=== PATIENT | male | born 1950 | race Caucasian/White ===

== ENCOUNTER → 2016-12-18 | Outpatient (CLI) | payer MEDICARE ==
--- NOTE | 2016-12-18 15:35 | XR ---
EXAMINATION TYPE: XR ribs LT w pa chest xray DATE OF EXAM: 12/18/2016 COMPARISON: NONE HISTORY: Left rib injury TECHNIQUE: 2 views left RIBS FINDINGS: No acute fractures are evident. No pneumothorax is evident. IMPRESSION: 1. Normal left ribs
== END | disposition home or self-care (01) ==
LOC: RADXRYALE 14:01
PROVIDERS: ATTEND Physician Assistant Medical
DX: R07.81 Pleurodynia (principal); W19.XXXA Unspecified fall, initial encounter

== ENCOUNTER 2017-03-03 11:49 | Day surgery (SDC) | payer MEDICARE ==
[2017-02-27 09:26] VITALS: BMI 32.9
[~2017-03-03 11:49] MED LIST: LACTATED RINGERS 1,000 ML IV SCH
[2017-03-03 12:36] VITALS: RESP 18; TEMP 98.3
[2017-03-03] MEDS ORDERED: LIDOCAINE 1% 20 ML VIAL (10MG/ML) FOR IV START INTRADERMA ONE (12:37)
[2017-03-03] MEDS ORDERED: PROPOFOL 10 MG/ML 20 ML VIAL IV ONE (13:15)
[2017-03-03 13:47] VITALS: BP 138/86
--- NOTE | 2017-03-03 13:55 | P.PCN ---
Date of Procedure: 03/03/17 Procedure(s) Performed: Procedure: Total colonoscopy. Preoperative diagnosis: Hemoccult-positive stools. Postoperative diagnosis: Exam within normal limits. Preparation: HalfLytely prep. Sedation: Was provided by anesthesia. Brief clinical history: The patient is a 66-year-old male who is referred for this evaluation because of finding of positive occult blood in his stools. The patient has no overt bleeding or any abdominal symptoms. He had a similar finding in May 2015 and was found to have a flat adenoma in the right colon which was snared and removed piecemeal. This evaluation is requested to rule out neoplasia or other pathology. Procedure: With the patient on his left lateral decubitus position and after informed consent and adequate sedation the perianal area was inspected and it did not show any fissures or fistulas. There were no masses felt on digital rectal examination. The Olympus CFQ 160l video colonoscope was then inserted in the rectum in the usual fashion and advanced to the cecum. I intubated the ileocecal valve and examined the terminal ileum for a good distance. Terminal ileum and colon appeared healthy with no edema, erythema, friability, ulceration , exudation or spontaneous bleeding. No polyps or tumors were seen or any obvious pathology. I retroflexed the endoscope in the rectum before the endoscope was withdrawn, low-grade internal hemorrhoids were noted but there was no bleeding. The patient tolerated the procedure well. Plan: The patient was reassured. In the absence of upper GI complaints or anemia I did not recommend upper GI workup for the workup of his Hemoccult positive stools at this time and that can be kept as a contingency based on his course. He will follow up with you as planned and I recommended repeat colonoscopy in around 5 years.
[2017-03-03 14:13] VITALS: PULSE 70
== END 2017-03-03 14:29 | disposition home or self-care (01) ==
LOC: ORWHC2ENDO 11:49
DX: K64.8 Other hemorrhoids (principal); Z86.010 Personal history of colon polyps; I10 Essential (primary) hypertension; E78.5 Hyperlipidemia, unspecified; M19.90 Unspecified osteoarthritis, unspecified site; Z79.1 Long term (current) use of non-steroidal anti-inflammatories (NSAID); Z79.891 Long term (current) use of opiate analgesic; Z79.899 Other long term (current) drug therapy
CPT/HCPCS: 45378; J2704

== ENCOUNTER → 2017-08-19 | Outpatient (CLI) | payer MEDICARE ==
--- NOTE | 2017-08-19 09:57 | CT ---
EXAMINATION TYPE: CT sinus wo con DATE OF EXAM: 08/19/2017 COMPARISON: NONE HISTORY: Chronic pansinusitis CT DLP: 654.40 mGycm. Automated Exposure Control for Dose Reduction was Utilized. TECHNIQUE: CT scan of the sinuses is performed without contrast, axial images are obtained, coronal r eformatted images are also reviewed. FINDINGS: There is moderate to severe mucosal thickening involving the right maxillary sinus with occ lusion of the ostiomeatal complex. There is a mucous retention cyst involving the inferior margin of the left maxillary sinus. The ostiu m and ostiomeatal complex are patent. Frontal sinus has a normal appearance. There is mild ethmoidal mucosal thickening. Sphenoid sinus has a normal appearance. There is a nasal septal deviation. Nasopharynx and oropharynx symmetric. Visualized parotid glands normal. Intraorbital and intracranial structures visualized demonstrate no acute abnormality. IMPRESSION: 1. Findings are compatible with moderate to severe chronic right maxillary sinusitis with occlusion o f the ostiomeatal complex. Minimal changes are seen involving the left maxillary sinus.
== END | disposition home or self-care (01) ==
LOC: RADCTMAIN 08:07
PROVIDERS: ATTEND Family Medicine
DX: J34.89 Other specified disorders of nose and nasal sinuses (principal); J32.4 Chronic pansinusitis
CPT/HCPCS: 70486

== ENCOUNTER 2020-03-03 20:25 | Emergency (ER) | payer OTHER, MEDICARE ==
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
--- NOTE | 2020-03-03 21:30 | XR ---
EXAMINATION TYPE: XR Femur RT 1 View DATE OF EXAM: 03/03/2020 COMPARISON: NONE HISTORY: Pain TECHNIQUE: 2 views FINDINGS: There is a posterior superior fracture dislocation of the right hip joint. There is large f racture fragment of the acetabulum located superiorly and posteriorly. The knee joint appears anatomi c. IMPRESSION: Posterior superior fracture dislocation of the right hip joint.
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
[2020-03-03] MEDS ORDERED: ePHEDrine SULFATE/0.9% NACL/PF 50 MG/5 ML SYRINGE IV ONE (21:43)
[2020-03-03] MEDS ORDERED: fentaNYL (PF) 50 MCG/ML 2 ML AMP ONE (21:43)
[2020-03-03] MEDS ORDERED: IV FLUID CONTINUATION 1,000 ML IV ONE (21:43)
[2020-03-03] MEDS ORDERED: KETOROLAC 15 MG/ML 1 ML VIAL ONE (21:43)
[2020-03-03] MEDS ORDERED: LACTATED RINGERS 1,000 ML IV ONE ×2 (21:43→22:00)
[2020-03-03] MEDS ORDERED: ROCURONIUM 10 MG/ML (5 ML VIAL) IV ONE (21:43)
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
[2020-03-03 22:10] LABS: Appearance,Urine Cloudy (Clear); Bilirubin,Urine Negative (Negative); Blood,Urine Large (Negative); Budding Yeast,Urine Few /hpf; Color,Urine Light Red; Glucose,Urine (UA) Negative (Negative); Hyaline Casts,Urine 10 /lpf (0-2); Ketones,Urine Negative (Negative); Leukocyte Esterase,Urine Negative (Negative); Mucus,Urine Few /hpf; Nitrite,Urine Negative (Negative); PH, Urine 5.5 (5.0-8.0); Protein,Urine 1+ (Negative); RBC,Urine >182 /hpf (0-5); Specific Gravity,Urine 1.033 (1.001-1.035); Squamous Epithelial Cell,Urine 1 /hpf (0-4); Urobilinogen,Urine <2.0 mg/dL (<2.0); WBC,Urine 26 /hpf (0-5)
[2020-03-03 22:34] LABS: Amphetamine Screen,Urine Not Detected (NotDetected); Barbiturate Screen,Urine Not Detected (NotDetected); Benzodiazepines Screen,Urine Detected (NotDetected); Cocaine Screen,Urine Not Detected (NotDetected); Methadone Screen, Urine Not Detected (NotDetected); Opiate Screen,Urine Detected (NotDetected); Oxycodone Screen, Urine Not Detected (NotDetected); Phencyclidine Screen,Urine Not Detected (NotDetected); Tricyclic Antidepressant,Urine Not Detected (NotDetected); Urn Cannabinoid Scrn Not Detected (NotDetected)
[2020-03-03 22:42] LABS: Basophils % (A) 0 %; Eosinophils # (A) 0.1 k/uL (0-0.7); Eosinophils % (A) 1 %; HCT 40.4 % (39.0-53.0); HGB 12.8 gm/dL (13.0-17.5); Hypochromasia Slight; Lymphocytes # (A) 2.2 k/uL (1.0-4.8); Lymphocytes % (A) 16 %; MCH 28.9 pg (25.0-35.0); MCHC 31.6 g/dL (31.0-37.0); MCV 91.3 fL (80.0-100.0); Mean Platelet Volume 7.2; Monocytes # (A) 0.8 k/uL (0-1.0); Monocytes % (A) 6 %; Neutrophils # (A) 10.4 k/uL (1.3-7.7); Neutrophils % (A) 76 %; Platelet Count 265 k/uL (150-450); RBC 4.42 m/uL (4.30-5.90); RDW 15.4 % (11.5-15.5); WBC 13.6 k/uL (3.8-10.6)
[2020-03-03 23:00] LABS: ALT 84 U/L (4-49); AST 138 U/L (17-59); African American GFR (CKD) 83 (>60 ml/min/1.73 sqM); Albumin 2.4 g/dL (3.5-5.0); Alcohol <10 mg/dL; Alkaline Phosphatase 86 U/L (38-126); Anion Gap 2 mmol/L; Blood Urea Nitrogen 28 mg/dL (9-20); Calcium 6.8 mg/dL (8.4-10.2); Carbon Dioxide 27 mmol/L (22-30); Chloride 110 mmol/L (98-107); Glucose 118 mg/dL (74-99); Non-African American GFR(CKD) 72 (>60 ml/min/1.73 sqM); Potassium 4.4 mmol/L (3.5-5.1); Sodium 139 mmol/L (137-145); Total Bilirubin 0.3 mg/dL (0.2-1.3); Total Protein 4.6 g/dL (6.3-8.2)
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
[2020-03-03 23:14] LABS: Creatine Kinase 1435 U/L (55-170)
[2020-03-03 23:37] VITALS: BP 99/64; PULSE 118; RESP 28; TEMP 97
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
[2020-03-04] MEDS ORDERED: fentaNYL (PF) 50 MCG/ML 2 ML AMP IVP PRN (01:44)
--- NOTE | 2020-03-07 09:06 | CDI ---
Dear Demarcus Genao, Please do addendum to ED report moderate sedation start and stop time. Thank you, Marcio Hutson Travel Registered Nurse Oncology If you have any questions, please contact [employer] at [phone] [facility]
== END 2020-03-03 21:36 | disposition other institution (70) ==
LOC: EC 20:25
DX: S27.2XXA Traumatic hemopneumothorax, initial encounter (principal); S22.5XXA Flail chest, initial encounter for closed fracture; S73.001A Unspecified subluxation of right hip, initial encounter; S32.401A Unspecified fracture of right acetabulum, initial encounter for closed fracture; S70.11XA Contusion of right thigh, initial encounter; M62.82 Rhabdomyolysis; S20.212A Contusion of left front wall of thorax, initial encounter; S20.211A Contusion of right front wall of thorax, initial encounter; I95.9 Hypotension, unspecified; R06.03 Acute respiratory distress; E78.5 Hyperlipidemia, unspecified; M19.90 Unspecified osteoarthritis, unspecified site; Z79.1 Long term (current) use of non-steroidal anti-inflammatories (NSAID); I10 Essential (primary) hypertension; Z79.899 Other long term (current) drug therapy; Z87.891 Personal history of nicotine dependence; V63.5XXA Driver of heavy transport vehicle injured in collision with car, pick-up truck or van in traffic accident, initial encounter; Y93.89 Activity, other specified; Y92.410 Unspecified street and highway as the place of occurrence of the external cause
CPT/HCPCS: 99291; 96374; 32551; 27250; 99152; 31500; 36415; 93005; 86900; 86901; 80053; 82550; 84484; 85025; 86850; 86920; 81001; 80306; 80320; 72170; 73551; 71045; 72125; 70450; 71260; 74177; C1729 ×2; P9016; P9059; J3010; J1885

== ENCOUNTER → 2020-08-18 | Outpatient (CLI) | payer OTHER, MEDICARE ==
[2020-08-18 12:49] LABS: African American GFR (CKD) >90 (>60 ml/min/1.73 sqM); Blood Urea Nitrogen 20 mg/dL (9-20); Non-African American GFR(CKD) >90 (>60 ml/min/1.73 sqM)
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
== END ==
LOC: RADCTMAIN 11:57
PROVIDERS: ATTEND Surgery Surgical Oncology
DX: M79.89 Other specified soft tissue disorders (principal)
CPT/HCPCS: 82565; 84520; 73702; 36415; 73202; Q9967

== ENCOUNTER → 2022-03-15 | Outpatient (CLI) | payer MEDICARE, OTHER ==
--- NOTE | 2022-03-15 18:04 | CA ---
Transthoracic Echo Report Name: Lior Hahn Age: 71 Gender: M : 1950 Exam Date: 03/15/2022 13:02 Exam Location: [place] [facility] Ht (in): 65 Wt (lb): 180 Ordering Physician: Gabriele Champion DO Attending/Referring Phys: Hunter Trapper Kathrin Rogers RDCS Procedure CPT: Indications: R06.02 SOB Cardiac Hx: Technical Quality: Fair Contrast 1: Total Dose (mL): Contrast 2: Total Dose (mL): MEASUREMENTS (Male / Female) Normal Values 2D ECHO LV Diastolic Diameter PLAX 5.0 cm 4.2 - 5.9 / 3.9 - 5.3 cm LV Systolic Diameter PLAX 4.0 cm IVS Diastolic Thickness 1.0 cm 0.6 - 1.0 / 0.6 - 0.9 cm LVPW Diastolic Thickness 1.5 cm 0.6 - 1.0 / 0.6 - 0.9 cm LV Relative Wall Thickness 0.5 RV Internal Dim ED PLAX 3.8 cm M-MODE Aortic Root Diameter MM 3.2 cm LA Systolic Diameter MM 3.3 cm LA Ao Ratio MM 1.0 MV E Point Septal Separation 0.3 cm AV Cusp Separation MM 2.1 cm DOPPLER TR Peak Velocity 244.9 cm/s TR Peak Gradient 24.0 mmHg Right Ventricular Systolic Press 29.0 mmHg FINDINGS Left Ventricle Left ventricular ejection fraction is estimated at 45-50 %. Mildly increased left ventricular wall thickness. Right Ventricle Moderate right ventricular dilatation. Right Atrium Normal right atrial size. Left Atrium Normal left atrial size. Mitral Valve Structurally normal mitral valve. Mild mitral regurgitation. Aortic Valve Trileaflet aortic valve. Aortic valve sclerosis. Tricuspid Valve Structurally normal tricuspid valve. Mild tricuspid regurgitation. Pulmonic Valve Pulmonic valve not well visualized. Pericardium Normal pericardium. Aorta Normal size aortic root and proximal ascending aorta. CONCLUSIONS Mildly impaired LV function was EF between 45-50% Previewed by: Dr. Reinaldo Harris MD (Electronically Signed) Final Date: 15 March 2022 18:03
== END | disposition home or self-care (01) ==
LOC: RADECHMAIN 12:52
PROVIDERS: ATTEND Family Medicine
DX: R06.02 Shortness of breath (principal); R60.9 Edema, unspecified
CPT/HCPCS: 93306

== ENCOUNTER → 2022-06-05 | Outpatient (CLI) | payer OTHER ==
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
== END | disposition home or self-care (01) ==
LOC: RADCTMAIN 09:02
PROVIDERS: ATTEND Surgery Surgical Oncology
DX: S22.43XA Multiple fractures of ribs, bilateral, initial encounter for closed fracture (principal); M61.58 Other ossification of muscle, other site; R68.81 Early satiety
CPT/HCPCS: 71250; 74176

== ENCOUNTER → 2022-10-29 | Outpatient (CLI) | payer MEDICARE ==
--- NOTE | 2022-10-29 11:11 | XR ---
EXAMINATION TYPE: XR chest 2V DATE OF EXAM: 10/29/2022 COMPARISON: 03/03/2020 TECHNIQUE: PA and lateral views submitted. HISTORY: Cough FINDINGS: The lungs are clear and there is no pneumothorax, pleural effusion, or focal pneumonia. Heart size normal and no overt failure. Osseous structures demonstrate hypertrophic and degenerative changes of the spine. Chronic deformity and postsurgical changes involving the rib cage. Atherosclerotic change aorta. IMPRESSION: 1. No acute process.
== END | disposition home or self-care (01) ==
LOC: RADXRYALE 10:39
PROVIDERS: ATTEND Family Medicine
DX: J18.0 Bronchopneumonia, unspecified organism (principal); R06.2 Wheezing; R06.02 Shortness of breath
CPT/HCPCS: 71046

== ENCOUNTER → 2024-09-07 | Outpatient (CLI) | payer MEDICARE ==
[2024-09-07 12:33] LABS: African American GFR (CKD) >90 (>60 ml/min/1.73 sqM); Blood Urea Nitrogen 19 mg/dL (9-20); Non-African American GFR(CKD) 81 (>60 ml/min/1.73 sqM)
--- NOTE | 2024-09-07 13:18 | CT ---
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 FINDINGS: Noncontrast images show no acute intracranial hemorrhage or midline shift. Mild to modera te ventricular and sulcal prominence is redemonstrated. Cghldmpe-la-fpqwvz low-attenuation deep and p eriventricular white matter is now present. Bulging is not seen. Postcontrast images show no suspicio us enhancing intraparenchymal mass. The globes are intact bilaterally. Some mild patchy soft tissue o pacity in the right maxillary sinus is seen. IMPRESSION: No abnormal enhancing masses. Tpuk-yv-bxsafkmu diffuse cerebral atrophy and moderate to a dvanced chronic small vessel ischemic changes are present. [facility], , 09/07/2024 1:16 PM
== END | disposition home or self-care (01) ==
LOC: RADCTMAIN 11:39
PROVIDERS: ATTEND Ophthalmology
DX: H53.47 Heteronymous bilateral field defects (principal); I67.82 Cerebral ischemia
CPT/HCPCS: 82565; 84520; 70470; 36415; Q9967